=== PATIENT | female | born 1975 | race Caucasian/White ===

== ENCOUNTER 2020-12-03 10:53 | Inpatient (IN) | payer MEDICAID ==
[~2020-12-03] VITALS: Ht 157.5 cm; Wt 57.1 kg
[~2020-12-03 10:53] MED LIST: ACET325T14 PO; ALBU18HF; BUDE10.2 INH; CARI350T PO; GABA100C PO; GUAI120S17 PO; GUAI600T80 PO; IPRA3AMP18; LEVO750T26 PO; METH10TA2 PO; NICO-587 TD; NYST5000 PO; ONDA4TAB10 PO; OXYC1TAB14 PO; PHEN177S47 MM; PRED10TA14 PO; PRED20TA PO; PREDNISONE; [UNRECOGNIZED DRUG - CODE]
[2020-12-03] MEDS ORDERED: SODIUM CHLORIDE 0.9% 1,000ML IVBOLUS ONE ×2 (11:30→17:30)
[2020-12-03 12:20] LABS: BASOPHILS % (AUTO) 0 % (0-1); EOSINOPHILS % (AUTO) 2 % (1-7); LYMPHOCYTES % (AUTO) 21 % (22-44); MEAN CORPUSCULAR HEMOGLOBIN 23.6 pg (27.0-34.8); MEAN CORPUSCULAR HGB CONC 32.5 g/dL (32.4-35.8); MEAN PLATELET VOLUME 8.3 fL (7.4-10.4); MONOCYTES % (AUTO) 4 % (2-9); NEUTROPHILS % (AUTO) 73 % (42-75); PLATELET COUNT 352 x10^3/uL (130-400); RED BLOOD COUNT 3.46 x10^6/uL (3.82-5.3); RED CELL DISTRIBUTION WIDTH 17.5 % (9.6-15.2)
[2020-12-03 12:27] LABS: ALBUMIN 2.4 g/dL (3.4-5.0); ANION GAP 10 mmol/L (5-15); CALCIUM 8.8 mg/dL (8.5-10.1); CHLORIDE 102 mmol/L (98-107); CREATININE 1.86 mg/dL (0.55-1.02)
[2020-12-03 12:30] LABS: MD NO
--- NOTE | 2020-12-03 12:41 | NUR ---
X [employer]: PT TO ROOM FROM [facility]
--- NOTE | 2020-12-03 12:45 | NUR ---
PATIENT WALKED BACK FROM [facility], AMBULATED TO BATHROOM WITH STEADY GAIT.
--- NOTE | 2020-12-03 12:53 | NUR ---
PATIENT'S CHIEF C/O MULTIPLE ABSCESSES. PER PATIENT SHE USES HEROIN, BUT ONLY "SHOOTS UP" IN MY SHOULDER AND ABD. NOW HAS AN ABSCESS ON HER LEFT BUTTOCKS, DRAINING. 2 ABSCESSED ON MID ABD, AND AN ABSCESS ON LEFT SHOULDER. ALL ARE DRAINING PURULENT DRAINAGE. PATIENT REPORTS CHILLS. CONNECTED TO MONITOR, CALL LIGHT WITHIN REACH.
--- NOTE | 2020-12-03 13:30 | NUR ---
LATE ENTRY DUE TO PATIENT CARE: ATTEMPTED TO DO ULTRASOUND IV X2. BOTH ATTEMPTS FAILED. UNABLE TO HAND FLUID BOLUS AT THIS TIME DUE TO NO IV ACCESS.
--- NOTE | 2020-12-03 13:58 | NUR ---
BREAK RN: PT RESTING IN ROOM. NO ACUTE DISTRESS NOTED. VS STABLE. CALL LIGHT IN PLACE. WILL CONTINUE TO MONITOR WHILE PRIMARY RN IS ON BREAK.
--- NOTE | 2020-12-03 14:15 | NUR ---
RN BACK FROM LUNCH, BREAK RN ATTEMPTED TO START ULTRASOUND IV, UNSUCCESSFUL, THIS IS THE 3RD ATTEMPT TO START A LINE. UNABLE TO HANG IV FLUIDS OR ANTIBIOTICS ERMD ORDERED DUE TO NO ACCESS AT THIS TIME.
--- NOTE | 2020-12-03 14:33 | NUR ---
ERMD AT BEDSIDE TO DO WOUND CULTURE AND DISCUSS POC.
--- NOTE | 2020-12-03 14:50 | NUR ---
18 GAUGE IV STARTED VIA ULTRASOUND IN RIGHT UPPER ARM. THIS IS THE 4TH ATTEMPT TO START A LINE.
[2020-12-03] MEDS ORDERED: HYDROmorphone 1 MG/ML, 1ML INJ ONE ×2 (14:57→17:05)
[2020-12-03] MEDS ORDERED: METRONIDAZOLE PMX 500MG/100ML 100 ML ONE (14:57)
--- NOTE | 2020-12-03 14:59 | NUR ---
PATIENT TO CT SCAN.
[2020-12-03] MEDS ORDERED: SODIUM CHLORIDE FLUSH 10ML SYR IVF ONE (15:00)
[2020-12-03] MEDS ORDERED: VANCOMYCIN PER PHARMACY MC ONE (15:00)
[2020-12-03] MEDS ORDERED: METRONIDAZOLE PMX 500MG/100ML 100 ML IV ONE (15:00)
[2020-12-03] MEDS ORDERED: VANCOMYCIN 1,300 MG in SODIUM CHLORIDE 0.9% 250 ML IV ONE (15:00)
[2020-12-03] MEDS: HYDROmorphone 1 MG/ML, 1ML INJ IVPush PRN ×2 (15:20→17:07)
--- NOTE | 2020-12-03 15:21 | NUR ---
PATIENT BACK FROM CT SCAN, FLUID BOLUS AND ABX HUNG. NADN, VSS, CALL LIGHT WITHIN REACH.
[2020-12-03] MEDS ORDERED: OMNIPAQUE 350 MG/ML, 100ML BOTTLE ONE (15:38)
--- NOTE | 2020-12-03 16:12 | NUR ---
DR. [facility]MENTA [facility] AT BEDSIDE FOR ADMISSION EVALUATION.
[2020-12-03] MEDS ORDERED: CEFAZOLIN 1,000 MG IV SCH (16:30)
[2020-12-03] MEDS ORDERED: ENALAPRILAT 1.25 MG/ML, 2ML IVPush PRN (16:30)
[2020-12-03] MEDS ORDERED: ONDANSETRON ODT 4 MG PO PRN (16:30)
[2020-12-03] MEDS ORDERED: BACLOFEN 10 MG TABLET PO PRN (16:30)
[2020-12-03] MEDS ORDERED: ONDANSETRON 2MG/ML, 2ML IVPush PRN ×2 (16:30→21:00)
[2020-12-03] MEDS ORDERED: VANCOMYCIN PER PHARMACY MC PRN (16:30)
[2020-12-03] MEDS ORDERED: CEFAZOLIN 1,000 MG ONE ×2 (16:33→16:41)
[2020-12-03] MEDS ORDERED: SUCCINYLCHOLINE 20 MG/ML, 10ML ONE (16:41)
[2020-12-03] MEDS ORDERED: PROPOFOL 10 MG/ML, 20ML ONE (16:41)
[2020-12-03] MEDS ORDERED: ROCURONIUM 10MG/ML,5ML ONE (16:41)
[2020-12-03] MEDS ORDERED: SUGAMMADEX 200 MG/2 ML IVPush ONE (16:41)
--- NOTE | 2020-12-03 16:42 | NUR ---
MARIA ESTHER WOUND CULTURE COLLECTED AND SENT TO LAB.
--- NOTE | 2020-12-03 17:09 | NUR ---
PATIENT MEDICATED PER eMAR, VSS, CALL LIGHT WITHIN REACH.
--- NOTE | 2020-12-03 18:10 | NUR ---
1900 mL BOLUS STARTED, NADN, SIDE RAILS UP X2, CALL LIGHT WITHIN REACH. SURGERY SCHEDULED FOR 1899.
--- NOTE | 2020-12-03 18:29 | NUR ---
PATIENT'S 02 SATURATION DROPPING DOWN TO 87-88%, PLACED PATIENT ON 2 LPM NC, O2 SATURATION UP TO 94%.
--- NOTE | 2020-12-03 18:29 | NUR ---
REPORT GIVEN TO JUAN JOSÉ STOCK IN OR.
--- NOTE | 2020-12-03 18:49 | NUR ---
REPORT GIVEN TO JUAN JOSÉ MONTGOMERY FOR TRANSFER OF PATIENT CARE.
--- NOTE | 2020-12-03 18:53 | NUR ---
PT TO BE TAKEN TO OR AT 1900. NO ACUTE DISTRESS AT THIS TIME.
--- NOTE | 2020-12-03 19:17 | NUR ---
MESS ATTENDANT TO BEDSIDE TO TAKE PT TO OR, PT [id number].
[2020-12-03] MEDS ORDERED: FENTANYL PF 100 MCG/2ML ONE (19:54)
[2020-12-03] MEDS ORDERED: HYDROmorphone 2 MG/ML, 1ML ONE (19:54)
[2020-12-03] MEDS ORDERED: DIAZEPAM 5 MG/ML, 2ML ONE (19:55)
[2020-12-03] MEDS ORDERED: OXYcodone 5 MG/5 ML ORAL.SOL UDC ONE (19:55)
[2020-12-03] MEDS ORDERED: MIDAZOLAM 1 MG/ML, 2ML ONE (20:18)
[2020-12-03] MEDS ORDERED: PROMETHAZINE 25 MG/ML, 1ML IV PRN (21:00)
[2020-12-03] MEDS ORDERED: LABETALOL 5MG/ML, 20ML IV PRN (21:00)
[2020-12-03] MEDS ORDERED: hydrALAzine 20 MG/ML, 1ML IV PRN (21:00)
[2020-12-03] MEDS ORDERED: ALBUTEROL SULFATE 2.5 MG/3 ML NPPB PRN (21:00)
[2020-12-03] MEDS ORDERED: MEPERIDINE/PF 25MG/0.5ML IVPush PRN (21:00)
[2020-12-03] MEDS ORDERED: OXYcodone 5 MG/5 ML ORAL.SOL UDC PO PRN (21:00)
[2020-12-03] MEDS ORDERED: DIAZEPAM 5 MG/ML, 2ML IV PRN ×2 (21:00)
[2020-12-03] MEDS ORDERED: KETOROLAC 30 MG/1 ML IV PRN (21:00)
[2020-12-03] MEDS: FENTANYL PF 100 MCG/2ML IV PRN ×2 (21:05→21:10)
[2020-12-03] MEDS: HYDROmorphone 1 MG/ML, 1ML INJ IV PRN ×4 (21:12→21:50)
[2020-12-03 22:25] VITALS: BP 99/63
[2020-12-03] MEDS ORDERED: PHARMACOKINETIC MONITORING MC PRN (23:30)
[2020-12-03] MEDS ORDERED: PHARMACOKINETIC CONSULTATION MC ONE (23:30)
[2020-12-03 23:51] VITALS: BP 100/63
[2020-12-04] VITALS (9 sets, daily range): BP systolic 99–116; BP diastolic 65–76
[2020-12-04] MEDS: OXYcodone IR 5MG TABLET PO PRN ×3 (02:54→19:53)
[2020-12-04] MEDS: CEFAZOLIN PMX 1GM/50ML 50 ML IV SCH ×3 (04:14→19:47)
[2020-12-04 06:08] LABS: BASOPHILS % (AUTO) 0 % (0-1); EOSINOPHILS % (AUTO) 2 % (1-7); LYMPHOCYTES % (AUTO) 16 % (22-44); MEAN CORPUSCULAR HEMOGLOBIN 23.5 pg (27.0-34.8); MEAN CORPUSCULAR HGB CONC 31.9 g/dL (32.4-35.8); MEAN PLATELET VOLUME 8.4 fL (7.4-10.4); MONOCYTES % (AUTO) 4 % (2-9); NEUTROPHILS % (AUTO) 78 % (42-75); PLATELET COUNT 231 x10^3/uL (130-400); RED BLOOD COUNT 2.77 x10^6/uL (3.82-5.3); RED CELL DISTRIBUTION WIDTH 17.4 % (9.6-15.2)
[2020-12-04 06:13] LABS: ANION GAP 6 mmol/L (5-15); CALCIUM 7.5 mg/dL (8.5-10.1); CHLORIDE 109 mmol/L (98-107); CREATININE 1.03 mg/dL (0.55-1.02); MD NO
[2020-12-04] MEDS ORDERED: OXYcodone 5 MG/5 ML ORAL.SOL UDC ONE (09:11)
[2020-12-04] MEDS: SENNA/DOCUSATE TABLET PO SCH (09:32)
[2020-12-04] MEDS: ENOXAPARIN 40 MG/0.4 ML SQ SCH (09:33)
[2020-12-04] MEDS: VANCOMYCIN 1,200 MG in SODIUM CHLORIDE 0.9% 250 ML IV SCH (12:12)
[2020-12-04 14:02] LABS: BASOPHILS % (AUTO) 0 % (0-1); EOSINOPHILS % (AUTO) 2 % (1-7); LYMPHOCYTES % (AUTO) 21 % (22-44); MEAN CORPUSCULAR HEMOGLOBIN 24.3 pg (27.0-34.8); MEAN CORPUSCULAR HGB CONC 32.1 g/dL (32.4-35.8); MEAN PLATELET VOLUME 8.3 fL (7.4-10.4); MONOCYTES % (AUTO) 5 % (2-9); NEUTROPHILS % (AUTO) 72 % (42-75); PLATELET COUNT 235 x10^3/uL (130-400); RED BLOOD COUNT 2.94 x10^6/uL (3.82-5.3); RED CELL DISTRIBUTION WIDTH 18.2 % (9.6-15.2)
[2020-12-04 14:08] LABS: MD NO
[2020-12-04] MEDS: ACETAMINOPHEN 325 MG TABLET PO PRN (19:47)
[2020-12-05] MEDS: TRAZODONE 50MG TABLET PO PRN ×2 (00:07→19:47)
[2020-12-05 02:27] VITALS: BP 112/75
[2020-12-05] MEDS: CEFAZOLIN PMX 1GM/50ML 50 ML IV SCH ×4 (04:00→20:13)
[2020-12-05] MEDS: OXYcodone IR 5MG TABLET PO PRN ×3 (05:41→20:13)
[2020-12-05] MEDS: VANCOMYCIN 1,200 MG in SODIUM CHLORIDE 0.9% 250 ML IV SCH ×2 (05:42→18:21)
[2020-12-05 07:26] LABS: BASOPHILS % (AUTO) 0 % (0-1); EOSINOPHILS % (AUTO) 2 % (1-7); LYMPHOCYTES % (AUTO) 22 % (22-44); MEAN CORPUSCULAR HEMOGLOBIN 24.5 pg (27.0-34.8); MEAN CORPUSCULAR HGB CONC 33.1 g/dL (32.4-35.8); MEAN PLATELET VOLUME 7.8 fL (7.4-10.4); MONOCYTES % (AUTO) 5 % (2-9); NEUTROPHILS % (AUTO) 71 % (42-75); PLATELET COUNT 222 x10^3/uL (130-400); RED BLOOD COUNT 3.17 x10^6/uL (3.82-5.3); RED CELL DISTRIBUTION WIDTH 18.1 % (9.6-15.2)
[2020-12-05 07:32] LABS: MD NO
[2020-12-05 07:34] LABS: % IRON SATURATION 10 % (20-55); ANION GAP 7 mmol/L (5-15); CALCIUM 7.6 mg/dL (8.5-10.1); CHLORIDE 111 mmol/L (98-107); IRON LEVEL 17 mcg/dL (50-170); TOTAL IRON BINDING CAPACITY 162 mcg/dL (250-450)
[2020-12-05] MEDS: SENNA/DOCUSATE TABLET PO SCH (07:36)
[2020-12-05] MEDS: ENOXAPARIN 40 MG/0.4 ML SQ SCH (07:37)
[2020-12-05 08:10] VITALS: BP 117/80
[2020-12-05] MEDS: HYDROmorphone 2 MG/ML, 1ML IVPush PRN ×2 (08:39→08:59)
[2020-12-05] MEDS ORDERED: MAGNESIUM HYDROXIDE 8%, 30ML UDC PO PRN (09:00)
[2020-12-05 13:15] VITALS: BP 126/86
[2020-12-05] MEDS ORDERED: LORazepam 2 MG/ML, 1ML IVPush PRN (19:30)
[2020-12-05] MEDS: DOCUSATE 100 MG CAPSULE PO PRN (19:47)
[2020-12-05 20:02] VITALS: BP 116/69
[2020-12-06 00:56] VITALS: BP 125/82
[2020-12-06] MEDS: CEFAZOLIN PMX 1GM/50ML 50 ML IV SCH ×3 (05:06→21:00)
[2020-12-06] MEDS: OXYcodone IR 5MG TABLET PO PRN ×4 (05:37→21:01)
[2020-12-06] MEDS: DOCUSATE 100 MG CAPSULE PO PRN (05:37)
[2020-12-06 06:37] LABS: BASOPHILS % (AUTO) 0 % (0-1); EOSINOPHILS % (AUTO) 1 % (1-7); LYMPHOCYTES % (AUTO) 18 % (22-44); MEAN CORPUSCULAR HEMOGLOBIN 24.2 pg (27.0-34.8); MEAN CORPUSCULAR HGB CONC 33.1 g/dL (32.4-35.8); MEAN PLATELET VOLUME 7.6 fL (7.4-10.4); MONOCYTES % (AUTO) 5 % (2-9); NEUTROPHILS % (AUTO) 76 % (42-75); PLATELET COUNT 207 x10^3/uL (130-400); RED CELL DISTRIBUTION WIDTH 18.2 % (9.6-15.2)
[2020-12-06 06:44] LABS: ANION GAP 5 mmol/L (5-15); CHLORIDE 105 mmol/L (98-107)
[2020-12-06 06:45] LABS: VANCOMYCIN,TROUGH 16.5 mcg/mL (5.0-10.0)
[2020-12-06 06:48] LABS: MD NO
[2020-12-06 07:00] VITALS: BP 124/76
[2020-12-06] MEDS: SENNA/DOCUSATE TABLET PO SCH (07:33)
[2020-12-06] MEDS: ENOXAPARIN 40 MG/0.4 ML SQ SCH (07:33)
[2020-12-06] MEDS: VANCOMYCIN 1,200 MG in SODIUM CHLORIDE 0.9% 250 ML IV SCH ×2 (07:33→15:00)
[2020-12-06] MEDS ORDERED: BISACODYL 10 MG SUPP PR PRN (12:00)
[2020-12-06] MEDS ORDERED: MAGNESIUM CITRATE 300ML ORAL SOL PO PRN (12:00)
[2020-12-06] MEDS: IRON SUCROSE COMPLEX 100MG/5ML IV SCH (12:20)
[2020-12-06 12:23] VITALS: BP 123/61
[2020-12-06 19:50] VITALS: BP 106/72
[2020-12-07 00:30] VITALS: BP 113/78
[2020-12-07] MEDS: OXYcodone IR 5MG TABLET PO PRN ×5 (01:23→20:17)
[2020-12-07] MEDS: VANCOMYCIN 1,200 MG in SODIUM CHLORIDE 0.9% 250 ML IV SCH (03:36)
[2020-12-07] MEDS: CEFAZOLIN PMX 1GM/50ML 50 ML IV SCH ×2 (05:30→13:17)
[2020-12-07 06:50] VITALS: BP 134/86
[2020-12-07] MEDS: ENOXAPARIN 40 MG/0.4 ML SQ SCH (07:25)
[2020-12-07] MEDS: SENNA/DOCUSATE TABLET PO SCH (09:00)
[2020-12-07 09:12] LABS: BASOPHILS % (AUTO) 1 % (0-1); EOSINOPHILS % (AUTO) 3 % (1-7); LYMPHOCYTES % (AUTO) 30 % (22-44); MEAN CORPUSCULAR HEMOGLOBIN 24.6 pg (27.0-34.8); MEAN PLATELET VOLUME 7.6 fL (7.4-10.4); MONOCYTES % (AUTO) 4 % (2-9); NEUTROPHILS % (AUTO) 62 % (42-75); PLATELET COUNT 224 x10^3/uL (130-400); RED BLOOD COUNT 3.39 x10^6/uL (3.82-5.3); RED CELL DISTRIBUTION WIDTH 18.7 % (9.6-15.2)
[2020-12-07 09:14] LABS: MD NO
[2020-12-07] MEDS: IRON SUCROSE COMPLEX 100MG/5ML IV SCH (09:18)
[2020-12-07 09:23] LABS: ANION GAP 4 mmol/L (5-15); CALCIUM 8.1 mg/dL (8.5-10.1); CHLORIDE 107 mmol/L (98-107); CREATININE 0.54 mg/dL (0.55-1.02)
[2020-12-07] MEDS ORDERED: OMNIPAQUE 350 MG/ML, 100ML BOTTLE ONE (10:51)
[2020-12-07 14:00] VITALS: BP 102/69
[2020-12-07] MEDS ORDERED: CHLORHEXIDINE 15 ML UDC MM ONE (14:00)
[2020-12-07] MEDS ORDERED: MIDAZOLAM 1 MG/ML, 2ML ONE (14:57)
[2020-12-07] MEDS ORDERED: DEXAMETHASONE 4 MG/ML, 1ML ONE (15:02)
[2020-12-07] MEDS ORDERED: FENTANYL PF 250 MCG/5ML ONE (15:07)
[2020-12-07] MEDS ORDERED: FENTANYL PF 100 MCG/2ML ONE ×2 (15:28→15:55)
[2020-12-07] MEDS ORDERED: PROMETHAZINE 25 MG/ML, 1ML IVPush PRN (15:30)
[2020-12-07] MEDS ORDERED: MIDAZOLAM 1 MG/ML, 2ML IV PRN (15:30)
[2020-12-07] MEDS ORDERED: ONDANSETRON 2MG/ML, 2ML IVPush PRN (15:30)
[2020-12-07] MEDS ORDERED: OXYcodone 5 MG/5 ML ORAL.SOL UDC PO PRN (15:30)
[2020-12-07] MEDS ORDERED: DIPHENHYDRAMINE 50 MG/ML, 1ML IVPush PRN ×2 (15:30)
[2020-12-07] MEDS ORDERED: HYDROmorphone 1 MG/ML, 1ML INJ IVPush PRN (15:30)
[2020-12-07] MEDS ORDERED: hydrALAzine 20 MG/ML, 1ML IV PRN (15:30)
[2020-12-07] MEDS ORDERED: ALBUTEROL SULFATE 2.5 MG/3 ML NPPB PRN (15:30)
[2020-12-07] MEDS ORDERED: PROMETHAZINE 12.5 MG SUPP PR PRN (15:30)
[2020-12-07] MEDS ORDERED: LABETALOL 5MG/ML, 20ML IV PRN (15:30)
[2020-12-07] MEDS ORDERED: EPHEDRINE 50 MG/ML, 1ML IVPush PRN (15:30)
[2020-12-07] MEDS ORDERED: DIAZEPAM 5 MG/ML, 2ML IVPush PRN (15:30)
[2020-12-07] MEDS ORDERED: FENTANYL PF 100 MCG/2ML IV PRN (15:30)
[2020-12-07] MEDS ORDERED: ONDANSETRON 2MG/ML, 2ML ONE (15:53)
[2020-12-07] MEDS ORDERED: MEPERIDINE/PF 25MG/ML,1ML ONE (16:27)
[2020-12-07] MEDS ORDERED: DIAZEPAM 5 MG/ML, 2ML ONE (16:27)
[2020-12-07] MEDS ORDERED: OXYcodone 5 MG/5 ML ORAL.SOL UDC ONE ×2 (16:27→16:32)
[2020-12-07] MEDS: MEPERIDINE/PF 25MG/0.5ML IVPush PRN ×2 (16:28→16:45)
[2020-12-07] MEDS ORDERED: ACETAMINOPHEN 650 MG/20.3 ML UDC ONE (16:41)
[2020-12-07] MEDS ORDERED: MEPERIDINE/PF 100 MG/ML ONE (16:42)
[2020-12-07] MEDS: ACETAMINOPHEN 325 MG TABLET PO PRN (16:45)
[2020-12-07] MEDS: VANCOMYCIN 1,300 MG in SODIUM CHLORIDE 0.9% 250 ML IV SCH (17:40)
[2020-12-07 19:14] VITALS: BP 106/70
[2020-12-07] MEDS: TRAZODONE 50MG TABLET PO PRN (20:16)
[2020-12-07] MEDS: CEFTRIAXONE PMX 1GM/50ML 50 ML IV SCH (20:16)
[2020-12-08] VITALS (9 sets, daily range): BP systolic 100–124; BP diastolic 65–84
[2020-12-08] MEDS: VANCOMYCIN 1,300 MG in SODIUM CHLORIDE 0.9% 250 ML IV SCH ×2 (00:21→17:15)
[2020-12-08] MEDS: OXYcodone IR 5MG TABLET PO PRN ×5 (00:28→18:04)
[2020-12-08 05:03] LABS: BASOPHILS % (AUTO) 0 % (0-1); EOSINOPHILS % (AUTO) 4 % (1-7); LYMPHOCYTES % (AUTO) 27 % (22-44); MEAN CORPUSCULAR HEMOGLOBIN 24.9 pg (27.0-34.8); MEAN PLATELET VOLUME 7.9 fL (7.4-10.4); MONOCYTES % (AUTO) 6 % (2-9); NEUTROPHILS % (AUTO) 62 % (42-75); PLATELET COUNT 232 x10^3/uL (130-400); RED BLOOD COUNT 2.71 x10^6/uL (3.82-5.3); RED CELL DISTRIBUTION WIDTH 18.7 % (9.6-15.2)
[2020-12-08 05:08] LABS: MD NO
[2020-12-08 05:13] LABS: ALANINE AMINOTRANSFERASE 13 U/L (12-78); ALBUMIN 1.5 g/dL (3.4-5.0); ANION GAP 4 mmol/L (5-15); CALCIUM 7.7 mg/dL (8.5-10.1); CHLORIDE 108 mmol/L (98-107); CREATININE 0.56 mg/dL (0.55-1.02)
[2020-12-08 05:16] LABS: ALKALINE PHOSPHATASE 89 U/L (45-117); BILIRUBIN,TOTAL 0.4 mg/dL (0.2-1.0); TOTAL PROTEIN 6.3 g/dL (6.4-8.2)
[2020-12-08] MEDS: ENOXAPARIN 40 MG/0.4 ML SQ SCH (09:00)
[2020-12-08] MEDS: IRON SUCROSE COMPLEX 100MG/5ML IV SCH (10:04)
[2020-12-08] MEDS: HYDROmorphone 2 MG/ML, 1ML IVPush PRN (10:04)
[2020-12-08] MEDS: SENNA/DOCUSATE TABLET PO SCH (10:04)
[2020-12-08] MEDS: MULTIVITAMINS/MINERALS TABLET PO SCH (13:50)
[2020-12-08] MEDS: ACETAMINOPHEN 325 MG TABLET PO PRN (16:15)
[2020-12-08] MEDS: CEFTRIAXONE PMX 1GM/50ML 50 ML IV SCH (20:09)
[2020-12-08] MEDS: TRAZODONE 50MG TABLET PO PRN (20:09)
[2020-12-09 01:26] VITALS: BP 120/83
[2020-12-09] MEDS: ACETAMINOPHEN 325 MG TABLET PO PRN ×2 (02:05→08:25)
[2020-12-09] MEDS: OXYcodone IR 5MG TABLET PO PRN ×4 (02:05→20:43)
[2020-12-09 04:53] LABS: BASOPHILS % (AUTO) 0 % (0-1); EOSINOPHILS % (AUTO) 4 % (1-7); LYMPHOCYTES % (AUTO) 34 % (22-44); MEAN CORPUSCULAR HEMOGLOBIN 26.1 pg (27.0-34.8); MEAN CORPUSCULAR HGB CONC 33.8 g/dL (32.4-35.8); MEAN PLATELET VOLUME 7.8 fL (7.4-10.4); MONOCYTES % (AUTO) 5 % (2-9); NEUTROPHILS % (AUTO) 57 % (42-75); PLATELET COUNT 251 x10^3/uL (130-400); RED BLOOD COUNT 3.11 x10^6/uL (3.82-5.3); RED CELL DISTRIBUTION WIDTH 19.4 % (9.6-15.2)
[2020-12-09 04:54] LABS: MD NO
[2020-12-09 05:04] LABS: ANION GAP 5 mmol/L (5-15); CHLORIDE 105 mmol/L (98-107)
[2020-12-09] MEDS: VANCOMYCIN 1,300 MG in SODIUM CHLORIDE 0.9% 250 ML IV SCH ×3 (06:04→22:06)
[2020-12-09 07:00] VITALS: BP 124/70
[2020-12-09] MEDS: IRON SUCROSE COMPLEX 100MG/5ML IV SCH (08:25)
[2020-12-09] MEDS: SENNA/DOCUSATE TABLET PO SCH (08:26)
[2020-12-09] MEDS: MULTIVITAMINS/MINERALS TABLET PO SCH (08:26)
[2020-12-09] MEDS: ENOXAPARIN 40 MG/0.4 ML SQ SCH (08:26)
[2020-12-09 14:30] VITALS: BP 112/79
[2020-12-09 20:45] VITALS: BP 107/76
[2020-12-10] MEDS: CEFTRIAXONE PMX 1GM/50ML 50 ML IV SCH (00:06)
[2020-12-10 00:15] VITALS: BP 113/73
[2020-12-10] MEDS: HYDROmorphone 2 MG/ML, 1ML IVPush SCH ×3 (03:36→16:03)
[2020-12-10] MEDS: HYDROmorphone 2 MG/ML, 1ML IVPush PRN (03:39)
[2020-12-10] MEDS: OXYcodone IR 5MG TABLET PO PRN ×2 (06:13→14:32)
[2020-12-10 06:40] VITALS: BP 127/80
[2020-12-10] MEDS: SENNA/DOCUSATE TABLET PO SCH (08:16)
[2020-12-10] MEDS: IRON SUCROSE COMPLEX 100MG/5ML IV SCH (08:16)
[2020-12-10] MEDS: MULTIVITAMINS/MINERALS TABLET PO SCH (08:16)
[2020-12-10] MEDS: ENOXAPARIN 40 MG/0.4 ML SQ SCH (08:17)
[2020-12-10] MEDS: VANCOMYCIN 1,300 MG in SODIUM CHLORIDE 0.9% 250 ML IV SCH (11:05)
[2020-12-10 12:37] VITALS: BP 109/66
== END 2020-12-10 18:49 | disposition left against medical advice (07) | DRG 574 ==
LOC: ED 14:11 → SUATTDRO 16:08 → EDIP 16:17 → 4NE 22:15 → 3N 12-09 20:17
PROVIDERS: ADMIT Hospitalist; ATTEND Family Medicine
PROC: 0JB80ZZ Excision of Abdomen Subcutaneous Tissue and Fascia, Open Approach (ICD-10-PCS; 2020-12-03)
PROC: 0JBD0ZZ Excision of Right Upper Arm Subcutaneous Tissue and Fascia, Open Approach (ICD-10-PCS; principal; 2020-12-03 19:00)
PROC: 0JB90ZZ Excision of Buttock Subcutaneous Tissue and Fascia, Open Approach (ICD-10-PCS; 2020-12-03 19:00)
PROC: 30233N1 Transfusion of Nonautologous Red Blood Cells into Peripheral Vein, Percutaneous Approach (ICD-10-PCS; 2020-12-04)
PROC: 0YBD0ZZ Excision of Left Upper Leg, Open Approach (ICD-10-PCS; 2020-12-07)
PROC: 0JB90ZZ Excision of Buttock Subcutaneous Tissue and Fascia, Open Approach (ICD-10-PCS; 2020-12-07)
PROC: 0XB90ZZ Excision of Left Upper Arm, Open Approach (ICD-10-PCS; 2020-12-07)
PROC: 0JBD0ZZ Excision of Right Upper Arm Subcutaneous Tissue and Fascia, Open Approach (ICD-10-PCS; 2020-12-07)
DX: L02.211 Cutaneous abscess of abdominal wall (principal); L02.31 Cutaneous abscess of buttock; L02.413 Cutaneous abscess of right upper limb; L02.414 Cutaneous abscess of left upper limb; L02.416 Cutaneous abscess of left lower limb; N17.9 Acute kidney failure, unspecified; Z53.29 Procedure and treatment not carried out because of patient's decision for other reasons; D50.0 Iron deficiency anemia secondary to blood loss (chronic); F11.10 Opioid abuse, uncomplicated; F17.200 Nicotine dependence, unspecified, uncomplicated; I10 Essential (primary) hypertension; J45.20 Mild intermittent asthma, uncomplicated; Z90.710 Acquired absence of both cervix and uterus; Z88.0 Allergy status to penicillin; Z88.6 Allergy status to analgesic agent
CPT/HCPCS: 36415; 74177; 80048; 80053; 80202; 82040; 82607; 82728; 83540; 83550; 83605; 84145; 85014; 85018; 85025; 86850; 86900; 86923; 87015; 87040; 87070; 87075; 87077; 87102; 87116; 87186; 87205; 87206; 87635; 96365; 99285; C1729; G0378; J0690; J0696; J1100; J1170; J1650; J1756; J2175; J2250; J2405; J2704; J3010; J3360; J3370; Q9967; J0330; J2060; J7030; J7050; P9016

== ENCOUNTER 2021-02-21 05:03 | Emergency (ER) | payer MEDICAID ==
[~2021-02-21] VITALS: Ht 157.5 cm; Wt 72.5 kg
[2021-02-21] MEDS ORDERED: ONDANSETRON 2MG/ML, 2ML IVPush ONE (06:00)
[2021-02-21] MEDS ORDERED: SODIUM CHLORIDE FLUSH 10ML SYR IVF ONE (06:00)
[2021-02-21] MEDS ORDERED: SODIUM CHLORIDE 0.9% 1,000ML IVBOLUS ONE (06:00)
[2021-02-21] MEDS ORDERED: HYDROmorphone 1 MG/ML, 1ML INJ IV ONE ×2 (06:00→08:30)
[2021-02-21] MEDS ORDERED: HYDROmorphone 1 MG/ML, 1ML INJ ONE ×3 (06:08→09:29)
[2021-02-21] MEDS ORDERED: ONDANSETRON 2MG/ML, 2ML ONE (06:08)
--- NOTE | 2021-02-21 06:40 | NUR ---
PT CAME INTO ED TODAY DUE TO ABDOMINAL PAIN AND LOWER EXTREMITY SWELLING. PT WAS SEEN AT [facility] [place] AND HAD SURGERY THEN [facility]. PT REPORTS THAT SHE HAS HAD TWO ABCESS SURGERIES ON HER ABDOMEN IN THE SAME AREA. PT AMBULATED TO AND FROM RESTROOM WITH A SMOOTH AND STEADY GAIT. REPORTS STILL URINATING AND BOWEL MOVEMENTS WITH DISCOMFORT. Patient is resting comfortably in bed. Bed in lowest, rails engaged, call light on lap. PROVIDED WARM BLANKETS FOR COMFORT. Vital Signs within normal limits. WCTM.
[2021-02-21 06:45] LABS: BASOPHILS % (AUTO) 1 % (0-1); EOSINOPHILS % (AUTO) 2 % (1-7); LYMPHOCYTES % (AUTO) 32 % (22-44); MEAN CORPUSCULAR HEMOGLOBIN 26.5 pg (27.0-34.8); MEAN CORPUSCULAR HGB CONC 33.3 g/dL (32.4-35.8); MEAN PLATELET VOLUME 7.3 fL (7.4-10.4); MONOCYTES % (AUTO) 5 % (2-9); NEUTROPHILS % (AUTO) 60 % (42-75); PLATELET COUNT 224 x10^3/uL (130-400); RED BLOOD COUNT 4.13 x10^6/uL (3.82-5.3); RED CELL DISTRIBUTION WIDTH 15.6 % (9.6-15.2)
[2021-02-21 06:53] LABS: MD NO
[2021-02-21 06:58] LABS: ALANINE AMINOTRANSFERASE 21 U/L (12-78); ALBUMIN 2.6 g/dL (3.4-5.0); ANION GAP 4 mmol/L (5-15); CALCIUM 8.2 mg/dL (8.5-10.1); CHLORIDE 107 mmol/L (98-107); CREATININE 0.44 mg/dL (0.55-1.02)
[2021-02-21 07:08] LABS: MICROSCOPIC INDICATED
--- NOTE | 2021-02-21 07:08 | NUR ---
BEDSIDE REPORT TO TAL CAN, PT CARE TRANSFERRED AT THIS TIME.
[2021-02-21 07:10] LABS: ALKALINE PHOSPHATASE 69 U/L (45-117); BILIRUBIN,TOTAL 0.2 mg/dL (0.2-1.0); TOTAL PROTEIN 7.1 g/dL (6.4-8.2)
--- NOTE | 2021-02-21 07:14 | NUR ---
Bedside report from JUAN JOSÉ Coronado. JUAN JOSÉ Donaldson at bedside working to obtain IV access via US.
--- NOTE | 2021-02-21 07:23 | NUR ---
Pt to imaging.
[2021-02-21] MEDS ORDERED: OMNIPAQUE 350 MG/ML, 100ML BOTTLE ONE (07:30)
--- NOTE | 2021-02-21 09:20 | NUR ---
MD Garcia back to bedside.
--- NOTE | 2021-02-21 09:33 | NUR ---
TASK RN: MEDICATED PT PER NOVEzra WOODS. CALL LIGHT W/IN REACH.
[2021-02-21 10:18] VITALS: BP 128/74
== END 2021-02-21 10:22 | disposition home or self-care (01) ==
LOC: ED 05:48
DX: R10.84 Generalized abdominal pain (principal); F11.10 Opioid abuse, uncomplicated; L02.211 Cutaneous abscess of abdominal wall; R60.0 Localized edema; I10 Essential (primary) hypertension; G43.909 Migraine, unspecified, not intractable, without status migrainosus; F17.200 Nicotine dependence, unspecified, uncomplicated; Z90.49 Acquired absence of other specified parts of digestive tract
CPT/HCPCS: 36415; 71045; 74177; 80053; 81001; 83605; 83690; 83880; 84703; 85025; 87040; 93970; 96361; 96374; 96375; 96376; 99285; J1170; J2405; J7030; Q9967

== ENCOUNTER 2021-04-25 15:15 | Inpatient (IN) | payer MEDICAID ==
[~2021-04-25] VITALS: Ht 157.5 cm; Wt 65.9 kg
--- NOTE | 2021-04-25 16:38 | NUR ---
historical guide: Pt ambulatory to room from lobby at this time.
--- NOTE | 2021-04-25 16:52 | NUR ---
PATIENT WHEELED BACK FROM TRIAGE WITH LEFT UPPER LEG ABSCESS X2 DAYS. PER PATIENT SHE TOOK A "HOT BATH AND ABSCESS BURST." PATIENT'S LEFT LEG IS SWOLLEN AND RED, PATIENT REPORTS DIFFICULTY PUTTING WEIGHT ON LEG. LEFT LEG SWOLLEN AND REDNESS NOTED TO LEFT THIGH AREA, ABSCESS COVERED WITH DRESSING, NADN, CONNECTED TO MONITOR, VSS, CALL LIGHT WITHIN REACH.
[2021-04-25] MEDS ORDERED: CLINDAMYCIN PMX 600MG/50ML 50 ML IV ONE (17:30)
[2021-04-25] MEDS ORDERED: LIDOCAINE-MPF 1%, 5ML INFIL ONE (17:30)
[2021-04-25] MEDS ORDERED: SODIUM CHLORIDE 0.9% 1,000ML IVBOLUS ONE (17:30)
[2021-04-25] MEDS ORDERED: VANCOMYCIN PER PHARMACY MC PRN ×2 (17:30→20:30)
--- NOTE | 2021-04-25 17:34 | NUR ---
20 GAUGE IV STARTED LEFT UPPER ARM WITH US MACHINE, ONE SET OF BLOOD CULTURES DRAWN AND LABELLED AT BEDSIDE, PATIENT CONNECTED TO MONITOR, VSS, CALL LIGHT WITHIN REACH.
[2021-04-25] MEDS ORDERED: LIDOCAINE-MPF 2% ,5ML ONE (17:39)
[2021-04-25] MEDS ORDERED: HYDROmorphone 2 MG/ML, 1ML ONE ×2 (17:40→18:38)
[2021-04-25] MEDS ORDERED: CLINDAMYCIN PMX 600MG/50ML 50 ML ONE (17:40)
[2021-04-25] MEDS: HYDROmorphone 1 MG/ML, 1ML INJ IVPush PRN ×2 (17:43→18:39)
--- NOTE | 2021-04-25 17:50 | NUR ---
I&D SET UP, PATIENT MEDICATED PER eMAR.
[2021-04-25] MEDS ORDERED: LIDOCAINE-MPF 1%, 2ML ONE (17:58)
[2021-04-25] MEDS ORDERED: VANCOMYCIN 1,700 MG in SODIUM CHLORIDE 0.9% 250 ML IV ONE (18:00)
--- NOTE | 2021-04-25 18:01 | NUR ---
ERPA AT BEDSIDE FOR I&D.
[2021-04-25 18:17] LABS: BASOPHILS % (AUTO) 0 % (0-1); EOSINOPHILS % (AUTO) 3 % (1-7); LYMPHOCYTES % (AUTO) 24 % (22-44); MEAN CORPUSCULAR HEMOGLOBIN 25.5 pg (27.0-34.8); MEAN CORPUSCULAR HGB CONC 33.9 g/dL (32.4-35.8); MEAN PLATELET VOLUME 8.3 fL (7.4-10.4); MONOCYTES % (AUTO) 5 % (2-9); NEUTROPHILS % (AUTO) 68 % (42-75); PLATELET COUNT 273 x10^3/uL (130-400); RED BLOOD COUNT 3.43 x10^6/uL (3.82-5.3); RED CELL DISTRIBUTION WIDTH 16.8 % (9.6-15.2)
[2021-04-25 18:31] LABS: ALBUMIN 2.1 g/dL (3.4-5.0); ANION GAP 5 mmol/L (5-15); CALCIUM 8.4 mg/dL (8.5-10.1); CHLORIDE 102 mmol/L (98-107); CREATININE 0.52 mg/dL (0.55-1.02)
--- NOTE | 2021-04-25 18:41 | NUR ---
PATIENT REPORTS 10/10 IN LEFT THIGH AFTER I&D, MEDICATED PER eMAR, JESSICA BONDS, CONNECTED TO MONITOR, VSS, CALL LIGHT WITHIN REACH.
--- NOTE | 2021-04-25 18:47 | NUR ---
REPORT RECIEVED FROM JUAN JOSÉ LUNA
--- NOTE | 2021-04-25 20:16 | NUR ---
FIRST ENCOUNTER WITH PATIENT. PATIENT UPDATED ON PLAN OF CARE. NO NOTED ADDITIONAL NEEDS AT THIS TIME. VSS. PT GIVEN BLANKETS AND WATER PER REQUEST. CALL LIGHT WITHIN REACH, BED IN LOWEST LOCKED POSITION, SIDE RAILS X 2 UP. WILL CONTINUE TO MONITOR.
[2021-04-25] MEDS ORDERED: OMNIPAQUE 350 MG/ML, 100ML BOTTLE ONE (21:02)
[2021-04-25 21:13] VITALS: BP 110/70
[2021-04-25] MEDS ORDERED: PHARMACOKINETIC CONSULTATION MC ONE (22:00)
[2021-04-25] MEDS ORDERED: PHARMACOKINETIC MONITORING MC PRN (22:00)
[2021-04-25] MEDS: ACETAMINOPHEN 500 MG TABLET PO SCH (22:04)
[2021-04-25] MEDS: HYDROmorphone 2 MG/ML, 1ML IVPush PRN (22:04)
[2021-04-25] MEDS: ENOXAPARIN 40 MG/0.4 ML SQ SCH (22:05)
[2021-04-26] MEDS: HYDROmorphone 2 MG/ML, 1ML IVPush PRN ×6 (02:45→18:29)
[2021-04-26 02:48] VITALS: BP 119/77
[2021-04-26 02:49] VITALS: BP 110/70
[2021-04-26 06:28] LABS: BASOPHILS % (AUTO) 1 % (0-1); EOSINOPHILS % (AUTO) 3 % (1-7); LYMPHOCYTES % (AUTO) 24 % (22-44); MEAN CORPUSCULAR HEMOGLOBIN 25.5 pg (27.0-34.8); MEAN CORPUSCULAR HGB CONC 33.9 g/dL (32.4-35.8); MEAN PLATELET VOLUME 8.2 fL (7.4-10.4); MONOCYTES % (AUTO) 5 % (2-9); NEUTROPHILS % (AUTO) 67 % (42-75); PLATELET COUNT 304 x10^3/uL (130-400); RED BLOOD COUNT 3.75 x10^6/uL (3.82-5.3); RED CELL DISTRIBUTION WIDTH 16.7 % (9.6-15.2)
[2021-04-26 06:33] LABS: ANION GAP 1 mmol/L (5-15); CALCIUM 8.9 mg/dL (8.5-10.1); CHLORIDE 106 mmol/L (98-107); CREATININE 0.44 mg/dL (0.55-1.02)
[2021-04-26] MEDS: CEFAZOLIN PMX 1GM/50ML 50 ML IV SCH (08:03)
[2021-04-26 08:20] VITALS: BP 131/82
[2021-04-26] MEDS: ACETAMINOPHEN 500 MG TABLET PO SCH ×3 (09:07→22:53)
[2021-04-26] MEDS: KETOROLAC 30 MG/1 ML IV PRN (09:52)
[2021-04-26] MEDS: VANCOMYCIN 1,300 MG in SODIUM CHLORIDE 0.9% 250 ML IV SCH (09:52)
[2021-04-26 14:07] VITALS: BP 142/93
[2021-04-27] MEDS: ENOXAPARIN 40 MG/0.4 ML SQ SCH ×2 (00:14→21:27)
[2021-04-27] MEDS: HYDROmorphone 2 MG/ML, 1ML IVPush PRN ×8 (00:15→21:28)
[2021-04-27] MEDS: CEFAZOLIN PMX 1GM/50ML 50 ML IV SCH ×2 (00:16→12:34)
[2021-04-27] MEDS: VANCOMYCIN 1,300 MG in SODIUM CHLORIDE 0.9% 250 ML IV SCH ×2 (01:02→13:13)
[2021-04-27 01:11] VITALS: BP 138/83
[2021-04-27 06:31] LABS: BASOPHILS % (AUTO) 1 % (0-1); EOSINOPHILS % (AUTO) 3 % (1-7); LYMPHOCYTES % (AUTO) 28 % (22-44); MEAN CORPUSCULAR HEMOGLOBIN 25.3 pg (27.0-34.8); MEAN CORPUSCULAR HGB CONC 33.4 g/dL (32.4-35.8); MEAN PLATELET VOLUME 8.1 fL (7.4-10.4); MONOCYTES % (AUTO) 4 % (2-9); NEUTROPHILS % (AUTO) 65 % (42-75); PLATELET COUNT 284 x10^3/uL (130-400); RED BLOOD COUNT 3.65 x10^6/uL (3.82-5.3); RED CELL DISTRIBUTION WIDTH 17.2 % (9.6-15.2)
[2021-04-27 06:46] LABS: ALBUMIN 2.2 g/dL (3.4-5.0); ANION GAP 4 mmol/L (5-15); CALCIUM 8.6 mg/dL (8.5-10.1); CHLORIDE 104 mmol/L (98-107)
[2021-04-27 06:50] LABS: ALANINE AMINOTRANSFERASE 56 U/L (12-78); ALKALINE PHOSPHATASE 93 U/L (45-117); BILIRUBIN,TOTAL 0.4 mg/dL (0.2-1.0); CREATININE 0.52 mg/dL (0.55-1.02); TOTAL PROTEIN 8.1 g/dL (6.4-8.2)
[2021-04-27 07:37] VITALS: BP 132/83
[2021-04-27] MEDS: ACETAMINOPHEN 500 MG TABLET PO SCH ×3 (09:22→21:27)
[2021-04-27 19:58] VITALS: BP 132/84
[2021-04-27] MEDS: VANCOMYCIN 1,100 MG in SODIUM CHLORIDE 0.9% 250 ML IV SCH (21:27)
[2021-04-28] MEDS: HYDROmorphone 2 MG/ML, 1ML IVPush PRN ×6 (00:46→21:52)
[2021-04-28] MEDS: CEFAZOLIN PMX 1GM/50ML 50 ML IV SCH (02:46)
[2021-04-28 03:12] VITALS: BP 142/85
[2021-04-28 05:09] LABS: BASOPHILS % (AUTO) 1 % (0-1); EOSINOPHILS % (AUTO) 3 % (1-7); LYMPHOCYTES % (AUTO) 31 % (22-44); MEAN CORPUSCULAR HEMOGLOBIN 25.1 pg (27.0-34.8); MEAN CORPUSCULAR HGB CONC 33.3 g/dL (32.4-35.8); MEAN PLATELET VOLUME 7.6 fL (7.4-10.4); MONOCYTES % (AUTO) 6 % (2-9); NEUTROPHILS % (AUTO) 60 % (42-75); PLATELET COUNT 288 x10^3/uL (130-400); RED BLOOD COUNT 3.76 x10^6/uL (3.82-5.3); RED CELL DISTRIBUTION WIDTH 16.9 % (9.6-15.2)
[2021-04-28 05:17] LABS: CHLORIDE 107 mmol/L (98-107)
[2021-04-28 05:32] LABS: ALANINE AMINOTRANSFERASE 51 U/L (12-78); ALBUMIN 2.5 g/dL (3.4-5.0); ALKALINE PHOSPHATASE 94 U/L (45-117); ANION GAP 6 mmol/L (5-15); BILIRUBIN,TOTAL 0.4 mg/dL (0.2-1.0); CALCIUM 8.8 mg/dL (8.5-10.1); CREATININE 0.42 mg/dL (0.55-1.02); TOTAL PROTEIN 8.4 g/dL (6.4-8.2)
[2021-04-28 07:00] VITALS: BP 161/81
[2021-04-28] MEDS: VANCOMYCIN 1,100 MG in SODIUM CHLORIDE 0.9% 250 ML IV SCH ×2 (07:53→16:01)
[2021-04-28] MEDS: ACETAMINOPHEN 500 MG TABLET PO SCH ×3 (07:53→21:51)
[2021-04-28 09:10] LABS: HCT (SEDRATE) 28.4 % (34.6-47.8)
[2021-04-28] MEDS: KETOROLAC 30 MG/1 ML IV PRN (11:16)
[2021-04-28 12:46] VITALS: BP 121/80
[2021-04-28] MEDS: CEFTRIAXONE 1,000 MG in DEXTROSE 5% 50 ML IVPB SCH (14:49)
[2021-04-28] MEDS ORDERED: OMNIPAQUE 350 MG/ML, 150 ML BOTTLE ONE (18:20)
[2021-04-28 19:50] VITALS: BP 130/77
[2021-04-28] MEDS: ENOXAPARIN 40 MG/0.4 ML SQ SCH (21:52)
[2021-04-29] MEDS: VANCOMYCIN 1,100 MG in SODIUM CHLORIDE 0.9% 250 ML IV SCH ×3 (00:01→17:34)
[2021-04-29 00:45] VITALS: BP 128/77
[2021-04-29] MEDS: HYDROmorphone 2 MG/ML, 1ML IVPush PRN ×8 (03:14→22:15)
[2021-04-29 07:54] VITALS: BP_SYST 146; BP_SYST 147; BP_DIAS 80; BP_DIAS 87
[2021-04-29] MEDS: ACETAMINOPHEN 500 MG TABLET PO SCH ×3 (08:20→21:00)
[2021-04-29 12:02] VITALS: BP 117/77
[2021-04-29] MEDS: CEFTRIAXONE 1,000 MG in DEXTROSE 5% 50 ML IVPB SCH (15:54)
[2021-04-29 19:39] VITALS: BP 147/73
[2021-04-29] MEDS ORDERED: FENTANYL PF 100 MCG/2ML ONE ×2 (20:25→21:19)
[2021-04-29] MEDS ORDERED: NEOSTIGMINE 1 MG/ML, 10ML ONE (21:15)
[2021-04-29] MEDS ORDERED: GLYCOPYRROLATE 0.2MG/1ML, 5ML ONE (21:15)
[2021-04-29] MEDS ORDERED: SUCCINYLCHOLINE 20 MG/ML, 10ML ONE (21:15)
[2021-04-29] MEDS ORDERED: CEFAZOLIN 1,000 MG ONE (21:15)
[2021-04-29] MEDS ORDERED: PROPOFOL 10 MG/ML, 20ML ONE (21:15)
[2021-04-29] MEDS ORDERED: ROCURONIUM 10MG/ML,5ML ONE (21:15)
[2021-04-29] MEDS ORDERED: ONDANSETRON 2MG/ML, 2ML ONE (21:15)
[2021-04-29] MEDS ORDERED: OXYcodone 5 MG/5 ML ORAL.SOL UDC ONE (21:19)
[2021-04-29] MEDS: FENTANYL PF 100 MCG/2ML IV PRN ×2 (21:25→21:35)
[2021-04-29] MEDS ORDERED: ACETAMINOPHEN 650 MG/20.3 ML UDC ONE (21:27)
[2021-04-29] MEDS ORDERED: MEPERIDINE/PF 25MG/ML,1ML ONE (21:27)
[2021-04-29] MEDS ORDERED: LABETALOL 5MG/ML, 20ML IV PRN (21:30)
[2021-04-29] MEDS ORDERED: KETOROLAC 30 MG/1 ML IV PRN (21:30)
[2021-04-29] MEDS ORDERED: ACETAMINOPHEN 325 MG TABLET PO PRN (21:30)
[2021-04-29] MEDS ORDERED: hydrALAzine 20 MG/ML, 1ML IV PRN (21:30)
[2021-04-29] MEDS ORDERED: OXYcodone 5 MG/5 ML ORAL.SOL UDC PO PRN (21:30)
[2021-04-29] MEDS ORDERED: ALBUTEROL SULFATE 2.5 MG/3 ML NPPB PRN (21:30)
[2021-04-29] MEDS ORDERED: PROMETHAZINE 25 MG/ML, 1ML IV PRN (21:30)
[2021-04-29] MEDS ORDERED: DIAZEPAM 5 MG/ML, 2ML IVPush PRN (21:30)
[2021-04-29] MEDS ORDERED: MEPERIDINE/PF 25MG/0.5ML IVPush PRN (21:30)
[2021-04-29] MEDS ORDERED: HYDROmorphone 1 MG/ML, 1ML INJ ONE ×2 (21:40→22:10)
[2021-04-29] MEDS ORDERED: KETOROLAC 30 MG/1 ML ONE (21:54)
[2021-04-29] MEDS: ENOXAPARIN 40 MG/0.4 ML SQ SCH (23:05)
[2021-04-30 00:09] VITALS: BP 126/73
[2021-04-30] MEDS: VANCOMYCIN 1,100 MG in SODIUM CHLORIDE 0.9% 250 ML IV SCH ×2 (02:00→17:03)
[2021-04-30] MEDS: HYDROmorphone 2 MG/ML, 1ML IVPush PRN ×4 (03:33→22:40)
[2021-04-30] MEDS: KETOROLAC 30 MG/1 ML IV PRN ×2 (06:00→07:20)
[2021-04-30 06:07] LABS: BASOPHILS % (AUTO) 0 % (0-1); EOSINOPHILS % (AUTO) 0 % (1-7); LYMPHOCYTES % (AUTO) 15 % (22-44); MEAN CORPUSCULAR HEMOGLOBIN 25.4 pg (27.0-34.8); MEAN CORPUSCULAR HGB CONC 33.1 g/dL (32.4-35.8); MEAN PLATELET VOLUME 8.2 fL (7.4-10.4); MONOCYTES % (AUTO) 1 % (2-9); NEUTROPHILS % (AUTO) 84 % (42-75); PLATELET COUNT 304 x10^3/uL (130-400); RED BLOOD COUNT 3.63 x10^6/uL (3.82-5.3); RED CELL DISTRIBUTION WIDTH 17.5 % (9.6-15.2)
[2021-04-30 06:10] LABS: ALANINE AMINOTRANSFERASE 41 U/L (12-78); ALBUMIN 2.5 g/dL (3.4-5.0); ANION GAP 3 mmol/L (5-15); CALCIUM 8.8 mg/dL (8.5-10.1); CHLORIDE 106 mmol/L (98-107); CREATININE 0.57 mg/dL (0.55-1.02)
[2021-04-30 06:13] LABS: ALKALINE PHOSPHATASE 94 U/L (45-117); BILIRUBIN,TOTAL 0.3 mg/dL (0.2-1.0); TOTAL PROTEIN 8.4 g/dL (6.4-8.2)
[2021-04-30 07:54] VITALS: BP 147/80
[2021-04-30] MEDS: ACETAMINOPHEN 500 MG TABLET PO SCH ×3 (08:49→20:48)
[2021-04-30] MEDS: OXYcodone IR 5MG TABLET PO PRN ×2 (12:06→16:07)
[2021-04-30 12:56] VITALS: BP 174/93
[2021-04-30] MEDS ORDERED: PROMETHAZINE 25 MG/ML, 1ML ONE (14:44)
[2021-04-30] MEDS ORDERED: PROMETHAZINE 25 MG/ML, 1ML IM PRN (15:00)
[2021-04-30] MEDS ORDERED: ONDANSETRON 2MG/ML, 2ML IVPush PRN (15:00)
[2021-04-30] MEDS: CEFTRIAXONE 1,000 MG in DEXTROSE 5% 50 ML IVPB SCH (19:40)
[2021-04-30 19:43] VITALS: BP 108/68
[2021-04-30] MEDS: ENOXAPARIN 40 MG/0.4 ML SQ SCH (20:48)
[2021-05-01 00:50] VITALS: BP 146/84
[2021-05-01] MEDS: VANCOMYCIN 1,100 MG in SODIUM CHLORIDE 0.9% 250 ML IV SCH ×3 (00:50→16:46)
[2021-05-01] MEDS: HYDROmorphone 2 MG/ML, 1ML IVPush PRN ×5 (02:43→19:14)
[2021-05-01 06:20] VITALS: BP 166/84
[2021-05-01] MEDS: ACETAMINOPHEN 500 MG TABLET PO SCH ×3 (07:08→20:33)
[2021-05-01 10:17] LABS: BASOPHILS % (AUTO) 1 % (0-1); EOSINOPHILS % (AUTO) 2 % (1-7); LYMPHOCYTES % (AUTO) 42 % (22-44); MEAN CORPUSCULAR HEMOGLOBIN 25.4 pg (27.0-34.8); MONOCYTES % (AUTO) 5 % (2-9); NEUTROPHILS % (AUTO) 51 % (42-75); PLATELET COUNT 269 x10^3/uL (130-400); RED BLOOD COUNT 3.55 x10^6/uL (3.82-5.3); RED CELL DISTRIBUTION WIDTH 17.5 % (9.6-15.2)
[2021-05-01 10:23] LABS: ALANINE AMINOTRANSFERASE 36 U/L (12-78); ALBUMIN 2.8 g/dL (3.4-5.0); ANION GAP 7 mmol/L (5-15); CHLORIDE 106 mmol/L (98-107); CREATININE 0.49 mg/dL (0.55-1.02)
[2021-05-01 10:26] LABS: ALKALINE PHOSPHATASE 91 U/L (45-117); BILIRUBIN,TOTAL 0.3 mg/dL (0.2-1.0); TOTAL PROTEIN 8.6 g/dL (6.4-8.2)
[2021-05-01 12:09] VITALS: BP 117/72
[2021-05-01] MEDS: CEFTRIAXONE 2,000 MG in DEXTROSE 5% 50 ML IVPB SCH (15:07)
[2021-05-01] MEDS ORDERED: ZOLPIDEM 5MG TABLET PO PRN (17:30)
[2021-05-01 20:14] VITALS: BP 111/64
[2021-05-01] MEDS: ENOXAPARIN 40 MG/0.4 ML SQ SCH (20:33)
[2021-05-02] MEDS: VANCOMYCIN 1,000 MG in SODIUM CHLORIDE 0.9% 100 ML IV SCH ×3 (00:38→16:25)
[2021-05-02 00:42] VITALS: BP 161/100
[2021-05-02] MEDS: HYDROmorphone 2 MG/ML, 1ML IVPush PRN ×4 (01:32→16:25)
[2021-05-02] MEDS: OXYcodone IR 5MG TABLET PO PRN (02:18)
[2021-05-02 03:01] LABS: BASOPHILS % (AUTO) 1 % (0-1); EOSINOPHILS % (AUTO) 3 % (1-7); LYMPHOCYTES % (AUTO) 46 % (22-44); MEAN CORPUSCULAR HEMOGLOBIN 25.8 pg (27.0-34.8); MEAN CORPUSCULAR HGB CONC 33.1 g/dL (32.4-35.8); MEAN PLATELET VOLUME 8.3 fL (7.4-10.4); MONOCYTES % (AUTO) 5 % (2-9); NEUTROPHILS % (AUTO) 45 % (42-75); PLATELET COUNT 255 x10^3/uL (130-400); RED BLOOD COUNT 3.52 x10^6/uL (3.82-5.3); RED CELL DISTRIBUTION WIDTH 18.1 % (9.6-15.2)
[2021-05-02 03:10] LABS: ALANINE AMINOTRANSFERASE 32 U/L (12-78); ALBUMIN 2.4 g/dL (3.4-5.0); ANION GAP 6 mmol/L (5-15); CALCIUM 8.1 mg/dL (8.5-10.1); CHLORIDE 103 mmol/L (98-107)
[2021-05-02 03:27] LABS: ALKALINE PHOSPHATASE 76 U/L (45-117); BILIRUBIN,TOTAL 0.3 mg/dL (0.2-1.0); TOTAL PROTEIN 7.9 g/dL (6.4-8.2)
[2021-05-02 07:13] VITALS: BP 104/67
[2021-05-02] MEDS: ACETAMINOPHEN 500 MG TABLET PO SCH ×2 (08:07→16:00)
[2021-05-02 12:31] VITALS: BP 113/74
[2021-05-02] MEDS ORDERED: HYDR-3248 PO (13:34)
[2021-05-02] MEDS ORDERED: SULF1TAB24 PO (13:37)
[2021-05-02] MEDS: CEFTRIAXONE 2,000 MG in DEXTROSE 5% 50 ML IVPB SCH (15:08)
== END 2021-05-02 17:23 | disposition home or self-care (01) | DRG 580 ==
LOC: ED 15:45 → SUATTDRO 19:51 → EDIP 21:10 → 4NE 21:11 → 3N 04-28 18:45
PROVIDERS: ADMIT Student in an Organized Health Care Education/Training Program; ATTEND Hospitalist
PROC: 0Y9D0ZZ Drainage of Left Upper Leg, Open Approach (ICD-10-PCS; 2021-04-25)
PROC: 02HV33Z Insertion of Infusion Device into Superior Vena Cava, Percutaneous Approach (ICD-10-PCS; 2021-04-25)
PROC: B5181ZA Fluoroscopy of Superior Vena Cava using Low Osmolar Contrast, Guidance (ICD-10-PCS; 2021-04-25)
PROC: B548ZZA Ultrasonography of Superior Vena Cava, Guidance (ICD-10-PCS; 2021-04-25)
PROC: 0K980ZZ Drainage of Left Upper Arm Muscle, Open Approach (ICD-10-PCS; principal; 2021-04-29 20:45)
DX: L02.413 Cutaneous abscess of right upper limb (principal); L03.116 Cellulitis of left lower limb; F11.20 Opioid dependence, uncomplicated; L02.416 Cutaneous abscess of left lower limb; F17.200 Nicotine dependence, unspecified, uncomplicated; I10 Essential (primary) hypertension; Z20.822 Contact with and (suspected) exposure to COVID-19; J45.20 Mild intermittent asthma, uncomplicated; D50.9 Iron deficiency anemia, unspecified; Z90.49 Acquired absence of other specified parts of digestive tract; Z80.3 Family history of malignant neoplasm of breast; Z86.14 Personal history of Methicillin resistant Staphylococcus aureus infection; Z98.51 Tubal ligation status; Z88.0 Allergy status to penicillin; Z88.5 Allergy status to narcotic agent; Z82.49 Family history of ischemic heart disease and other diseases of the circulatory system
CPT/HCPCS: 36415; 36573; 80048; 80053; 80202; 82040; 83605; 85025; 85651; 86140; 87040; 87070; 87075; 87076; 87077; 87186; 87205; 87635; 96365; 96367; G0378; J0690; J0696; J1170; J1650; J1885; J2175; J2405; J2550; J2704; J2710; J3010; J3370; Q9967; C1751; J0330; J7030; J7050